=== PATIENT | female | born 1935 | race Caucasian/White ===

== ENCOUNTER → 2017-11-27 | Outpatient (CLI) | payer MEDICARE, OTHER | END | disposition home or self-care (01) | LOC: KCIC MRI 11:12 | DX: M51.37 Other intervertebral disc degeneration, lumbosacral region (principal); M48.061 Spinal stenosis, lumbar region without neurogenic claudication; M47.896 Other spondylosis, lumbar region; M43.16 Spondylolisthesis, lumbar region; M25.78 Osteophyte, vertebrae; M17.11 Unilateral primary osteoarthritis, right knee | CPT/HCPCS: 72148; 73562 ==

== ENCOUNTER → 2019-05-07 | Day surgery (SDC) | payer MEDICARE, OTHER ==
[~2019-05-07] MED LIST: AMLO10TA8 PO; ASPI-630 PO; BENA20TA4 PO; CHLO25TA10 PO; GLUC-11 PO; INSU100I13 SQ; IV RINGERS,LACTATED 1000ML 1,000 ML IV ONE; IV RINGERS,LACTATED 1000ML 1,000 ML IV SCH; LIDOCAINE 2% PF 5 ML VIAL. ONE; METF1000 PO; POTA10TA6 PO; PROPOFOL 20 ML IV ONE; SIMV20TA18 PO; SITA100T PO; TRAM50TA PO
[2019-05-07 13:35] VITALS: BP 142/65
== END ==
LOC: SURG 11:18
PROVIDERS: ATTEND Internal Medicine Gastroenterology
DX: R19.5 Other fecal abnormalities (principal); K64.0 First degree hemorrhoids; E11.9 Type 2 diabetes mellitus without complications; I10 Essential (primary) hypertension; F15.90 Other stimulant use, unspecified, uncomplicated; Z88.8 Allergy status to other drugs, medicaments and biological substances; Z85.3 Personal history of malignant neoplasm of breast; Z86.010 Personal history of colon polyps; Z85.828 Personal history of other malignant neoplasm of skin; Z79.82 Long term (current) use of aspirin; Z79.84 Long term (current) use of oral hypoglycemic drugs
CPT/HCPCS: 45378; J2001; J2704

== ENCOUNTER → 2019-06-18 | Outpatient (CLI) | payer MEDICARE, OTHER ==
[2019-05-07 13:35] VITALS: BP 142/65
[~2019-06-18] MED LIST changes: -IV RINGERS,LACTATED 1000ML 1,000 ML IV ONE; -IV RINGERS,LACTATED 1000ML 1,000 ML IV SCH; -LIDOCAINE 2% PF 5 ML VIAL. ONE; -PROPOFOL 20 ML IV ONE
--- NOTE | 2019-06-18 14:17 | KCIC ---
MRI Lumbar Spine without contrast History: Low back pain, left hip pain for 3 weeks Technique: Multiplanar, multi sequential noncontrast MR imaging was performed of the lumbar spine. Comparison: November 27, 2017 Findings: Most inferior fully formed intervertebral disc space is again considered L5-S1. There is again grade 1 anterior spondylolisthesis at what is considered L4-5, negligible anterior spondylolisthesis at L5-S1 and L2-3 also similar. There is again advanced degenerative disc disease at L2-3 and L3-4, to lesser degree L4-5, minimally at L1-2. Conus terminates near L1. There is trace L2-3 endplate edema as seen previously likely reactive/degenerative in etiology. L1-L2: There is again buckling of the ligamentum flavum and facet degenerative change. There is again posterior bulge slightly indenting the ventral thecal sac. Spinal canal is again not significantly narrowed, very minimal narrowing of the far lateral recesses left greater than right. There is mild bilateral neural foramina compromise by disc osteophyte complex and facets. L2-L3: There is again moderate to severe facet degenerative change and fairly severe buckling of the ligamentum flavum. There is again disc osteophyte complex and bulge. Combination of findings results in overall moderate spinal stenosis including narrowing of the lateral recesses bilaterally, fairly similar. There is fairly severe narrowing of the right neural foramen by facet degenerative change and disc osteophyte complex. There is moderate narrowing of the left neural foramen. L3-L4: There is again disc osteophyte complex and bulge. There is again buckling of the ligamentum flavum and facet degenerative change. There is [id number] narrowing of the far lateral left lateral recess, minimally on the right. There is moderate to severe neural foramina compromise bilaterally by disc osteophyte complex and facets. L4-L5: There is again severe facet degenerative change greater on the left. There is mild buckling of the ligamentum flavum. There is again minimal narrowing of the far lateral recesses bilaterally. There is again very mild posterior narrowing of the left neural foramen, very mild inferior narrowing on the right. L5-S1: There is again facet degenerative change. Spinal canal and neural foramina are adequate. Impression: 1. Most inferior fully formed intervertebral disc space is again considered L5-S1. There is again more advanced degenerative disc disease at L2-3 and L3-4, spondylosis greatest at the same levels. There is moderate spinal stenosis with lateral recess stenosis bilaterally at L2-3, [id number] left and mild right lateral recess stenosis at L3-4. There is multilevel lumbar neural foramina compromise as stated, more significant narrowing right greater than left at L2-3 and bilaterally at L3-4. There is abnormal alignment as stated, most notable grade 1 anterior spondylolisthesis at L4-5 at which there is facet degenerative change. Electronically signed by: Yonas Edmonds MD (06/18/2019 2:14 PM) [id number]
== END | disposition home or self-care (01) ==
LOC: KCIC MRI 11:52
PROVIDERS: ATTEND Nurse Practitioner Family
DX: M47.817 Spondylosis without myelopathy or radiculopathy, lumbosacral region (principal); M51.36 Other intervertebral disc degeneration, lumbar region; M48.061 Spinal stenosis, lumbar region without neurogenic claudication; M43.17 Spondylolisthesis, lumbosacral region; M25.78 Osteophyte, vertebrae
CPT/HCPCS: 72148